=== PATIENT | female | born 1955 | race Native Hawaiian/Other Pacific Islander ===

== ENCOUNTER 2018-07-07 05:44 | Inpatient (IN) | payer OTHER ==
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
[2018-07-07 06:59] LABS: Basophils % (Auto) 0.5 % (0.0-1.8); Eosinophils # (Auto) 0.4 K/mm3 (0.0-0.4); Eosinophils % (Auto) 5.6 % (0.0-4.3); Hematocrit 42.7 % (30.3-42.9); Hemoglobin 14.3 gm/dl (10.1-14.3); Lymphocytes # (Auto) 2.5 K/mm3 (1.2-5.4); Lymphocytes % (Auto) 36.4 % (13.4-35.0); Mean Corpuscular HGB Conc 34 % (30-34); Mean Corpuscular Volume 85 fl (79-97); Monocytes # (Auto) 0.5 K/mm3 (0.0-0.8); Monocytes % (Auto) 7.2 % (0.0-7.3); Platelet Count 295 K/mm3 (140-440); Red Blood Count 5.05 M/mm3 (3.65-5.03); Red Cell Distribution Width 13.1 % (13.2-15.2)
[2018-07-07 07:13] LABS: BUN/Creatinine Ratio 26; Blood Urea Nitrogen 13 mg/dL (7-17); Calcium 9.1 mg/dL (8.4-10.2); Hemolysis Index 6
--- NOTE | 2018-07-07 07:38 | Emergency Department Report ---
ED Chest Pain HPI - General Chief Complaint: Dyspnea/Respdistress Stated Complaint: NORA Time Seen by Provider: 07/07/18 07:27 Source: patient, family Mode of arrival: Ambulatory Limitations: No Limitations - History of Present Illness Initial Comments: Patient is a 62-year-old female that presents to the emergency room with complaints of chest pain and shortness of breath. Patient also landed on exertion. Patient states her symptoms are gone for 2 days. Patient states her symptoms are worsening. Patient states she has a past medical history of d iabetes hypertension for which both are uncontrolled. Patient's last doctor visit one year ago. Patient also states she has a history of a PE that she received treatment for 2 years ago. Patient is not currently on any anticoagulation. Patient states the chest pain is a 8 out of 10 and is worse with exertion and better with rest. Patient states shortness of breath is better with rest and worse with exertion. Patient states the pain is radiating to her left upper extremity and to her back. MD Complaint: chest pain -: Sudden Onset: during rest Pain Location: substernal, left chest Pain Radiation: LUE, back Severity: severe Severity scale (0 -10): 8 Quality: aching Consistency: constant Improves With: rest Worsens With: exertion re: dyspnea. denies: nausea, vomting, diaphoresis, sense of impending doom Other Symptoms: denies: cough, fever, syncope, rash, acid taste in mouth, leg swelling, palpitations, burping Treatments Prior to Arrival: none Aspirin use within the Past 7 Days: (1) Yes - Related Data On Oral Contraceptives: No Home Medications Medication Instructions Recorded Confirmed Last Taken Aspirin [Aspirin BABY CHEW TAB] 81 mg PO QDAY 02/16/15 07/07/18 02/15/15 Losartan/Hydrochlorothiazide 1 each PO QDAY 07/07/18 07/07/18 Unknown [Hyzaar 100-12.5 TAB] Sitagliptin Phos/Metformin HCl 1 tab PO QDAY 07/07/18 07/07/18 Unknown [Janumet XR 100-1,000 mg] Allergies Allergy/AdvReac Type Severity Reaction Status Date / Time No Known Allergies Allergy Unverified 02/16/15 01:13 Heart Score - HEART Score History: Moderately suspicious EKG: Normal Age: 45-65 Risk factors: > 3 risk factors or hx of atherosclerotic disease Troponin: < normal limit HEART Score: 4 ED Review of Systems ROS: Stated complaint: NORA Other details as noted in HPI Constitutional: denies: chills, fever Eyes: denies: eye pain, eye discharge, vision change ENT: denies: ear pain, throat pain Respiratory: shortness of breath. denies: cough, wheezing Cardiovascular: chest pain. denies: palpitations Endocrine: no symptoms reported Gastrointestinal: denies: abdominal pain, nausea, diarrhea Genitourinary: denies: urgency, dysuria, discharge Musculoskeletal: denies: back pain, joint swelling, arthralgia Skin: denies: rash, lesions Neurological: denies: headache, weakness, paresthesias Psychiatric: denies: anxiety, depression Hematological/Lymphatic: denies: easy bleeding, easy bruising ED Past Medical Hx - Past Medical History Previous Medical History?: Yes Hx Hypertension: Yes Hx Diabetes: Yes Hx Pulmonary Embolism: Yes Hx Arthritis: Yes - Surgical History Past Surgical History?: Yes Additional Surgical History: hysterectomy 97 - Family History Family history: no significant - Social History Smoking Status: Former Smoker Substance Use Type: None - Medications Home Medications: Home Medications Medication Instructions Recorded Confirmed Last Taken Type Aspirin [Aspirin BABY CHEW TAB] 81 mg PO QDAY 02/16/15 07/07/18 02/15/15 History Losartan/Hydrochlorothiazide 1 each PO QDAY 07/07/18 07/07/18 Unknown History [Hyzaar 100-12.5 TAB] Sitagliptin Phos/Metformin HCl 1 tab PO QDAY 07/07/18 07/07/18 Unknown History [Janumet XR 100-1,000 mg] ED Physical Exam - General Limitations: No Limitations General appearance: alert, in no apparent distress - Head Head exam: Present: atraumatic, normocephalic - Eye Eye exam: Present: normal appearance - ENT ENT exam: Present: mucous membranes moist - Neck Neck exam: Present: normal inspection - Respiratory Respiratory exam: Present: normal lung sounds bilaterally. Absent: respiratory distress - Cardiovascular Cardiovascular Exam: Present: regular rate, normal rhythm. Absent: systolic murmur, diastolic murmur, rubs, gallop - GI/Abdominal GI/Abdominal exam: Present: soft, normal bowel sounds. Absent: distended, tenderness, guarding - Extremities Exam Extremities exam: Present: normal inspection - Back Exam Back exam: Present: normal inspection - Neurological Exam Neurological exam: Present: alert, oriented X3 - Psychiatric Psychiatric exam: Present: normal affect, normal mood - Skin Skin exam: Present: warm, dry, intact, normal color. Absent: rash ED Course Vital Signs 07/07/18 07/07/18 07/07/18 07:37 07:45 08:09 Pulse Rate 74 78 Respiratory 16 13 Rate Blood Pressure 176/72 O2 Sat by Pulse 100 97 96 Oximetry 07/07/18 07/07/18 07/07/18 08:15 08:31 08:45 Pulse Rate 73 68 70 Respiratory 11 L 17 14 Rate Blood Pressure O2 Sat by Pulse 95 95 93 Oximetry 07/07/18 07/07/18 07/07/18 09:00 09:15 09:30 Pulse Rate 75 73 73 Respiratory 15 16 12 Rate Blood Pressure 165/83 169/83 166/80 O2 Sat by Pulse 94 94 93 Oximetry 07/07/18 07/07/18 07/07/18 09:45 10:00 10:15 Pulse Rate 79 79 79 Respiratory 16 11 L 17 Rate Blood Pressure 163/77 163/78 174/84 O2 Sat by Pulse 96 93 97 Oximetry 07/07/18 07/07/18 07/07/18 10:30 10:45 11:00 Pulse Rate 78 82 77 Respiratory 12 19 16 Rate Blood Pressure 153/65 158/71 165/84 O2 Sat by Pulse 92 95 95 Oximetry 07/07/18 07/07/18 11:15 11:30 Pulse Rate 80 77 Respiratory 16 18 Rate Blood Pressure 153/77 155/68 O2 Sat by Pulse 92 92 Oximetry - Reevaluation(s) Reevaluation #1: Discussed all results with patient. Patient agrees to plan of care and admission. Patient will be admitted to the hospitalist service 07/07/18 09:39 - Consultations Consultation #1: Hospitalist consulted for admission. Hospitalist admit patient and assume care of patient. Bridge orders placed for hospitalist 07/07/18 09:39 JORGE score - Jorge Score Age > 65: (0) No Aspirin use within the Past 7 Days: (0) No 3 or more CAD Risk Factors: (1) Yes 2 or more Angina events in past 24 hrs: (1) Yes Known CAD with more than 50% Stenosis: (0) No Elevated Cardiac Markers: (0) No ST Deviation Greater than 0.5mm: (0) No JORGE Score: 2 ED Medical Decision Making - Lab Data Result diagrams: 07/07/18 06:45 07/07/18 06:45 - EKG Data -: EKG Interpreted by Me EKG shows normal: sinus rhythm, axis, intervals, QRS complexes, ST-T waves Rate: normal - Radiology Data Radiology results: report reviewed Negative chest x-ray. CT is negative for PE. - Medical Decision Making Patient is a 62-year-old female that presents emergency room with chest pain shortness of breath. Patient has a history of uncontrolled diabetes and uncontrolled hypertension.. Patient will be admitted to the hospitalist service. Patient's CT of the chest is negative. Patient's chest x-ray is negative. Patient's initial cardiac workup was negative. Patient's EKG is negative. - Differential Diagnosis acs. cp./ sob. pe Critical Care Time: Yes Critical care attestation.: If time is entered above; I have spent that time in minutes in the direct care of this critically ill patient, excluding procedure time. Critical Care Time: 35 minutes ED Disposition Clinical Impression: SOB (shortness of breath) Hypertension Qualifiers: Hypertension type: essential hypertension Qualified Code(s): I10 - Essential (primary) hypertension Chest pain Qualifiers: Chest pain type: unspecified Qualified Code(s): R07.9 - Chest pain, unspecified Disposition: DC-09 OP ADMIT IP TO THIS HOSP Is pt being admited?: Yes Does the pt Need Aspirin: No Condition: Critical Time of Disposition: 09:41
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
--- NOTE | 2018-07-07 13:38 | History and Physical Report ---
History of Present Illness Date of admission: 07/07/18 09:42 Chief complaint: Chest pain History of present illness: She is also complaining of dyspnea on exertion., Worsening symptoms. Denies any exacerbating factors except for exertion. She claims compliance with her medications. She is also complaining of midsternal dull chest pain, which is about 4 out of 10. States that pain is radiating to left upper extremity and to back Past medical history Hypertension, diabetes, history of PE Past surgical history; hysterectomy Family history significant for diabetes Social history former smoker, denies presence Medications and Allergies Allergies Allergy/AdvReac Type Severity Reaction Status Date / Time No Known Allergies Allergy Unverified 02/16/15 01:13 Home Medications Medication Instructions Recorded Confirmed Last Taken Type Aspirin [Aspirin BABY CHEW TAB] 81 mg PO QDAY 02/16/15 07/07/18 02/15/15 History Losartan/Hydrochlorothiazide 1 each PO QDAY 07/07/18 07/07/18 Unknown History [Hyzaar 100-12.5 TAB] Sitagliptin Phos/Metformin HCl 1 tab PO QDAY 07/07/18 07/07/18 Unknown History [Janumet XR 100-1,000 mg] amLODIPine [Norvasc] 10 mg PO DAILY #30 tab 07/08/18 Unknown Rx Active Meds: Active Medications Aspirin (Baby Aspirin) [address] [facility] Miscellaneous Medication (Losartan/Hydrochlorothiazide [Hyzaar 100-12.5 Tab]) 1 each PO QDAY [facility] Miscellaneous Medication (Sitagliptin Phos/Metformin Hcl [Janumet Xr 100-1,000 Mg]) [address] [facility] Review of Systems All systems: negative Constitutional: no weight loss Ears, nose, mouth and throat: no ear pain Breasts: no deferred Cardiovascular: chest pain, no orthopnea Respiratory: no cough Gastrointestinal: no abdominal pain Genitourinary Female: no pelvic pain Rectal: no pain Musculoskeletal: no neck stiffness Integumentary: no deferred Neurological: no head injury Psychiatric: no anxiety Endocrine: no cold intolerance Hematologic/Lymphatic: no easy bruising Allergic/Immunologic: no urticaria Exam - Constitutional Vitals: Temp Pulse Resp BP Pulse Ox 77 18 155/68 92 07/07/18 11:30 07/07/18 11:30 07/07/18 11:30 07/07/18 11:30 General appearance: Present: no acute distress, well-nourished - EENT Eyes: Present: PERRL ENT: hearing intact, clear oral mucosa - Neck Neck: Present: supple, normal ROM - Respiratory Respiratory effort: normal Respiratory: bilateral: CTA - Cardiovascular Heart Sounds: Present: S1 & S2. Absent: rub, click - Extremities Extremities: pulses symmetrical, No edema Peripheral Pulses: within normal limits - Abdominal General gastrointestinal: Present: soft, non-tender, non-distended, normal bowel sounds Female genitourinary: Present: normal - Integumentary Integumentary: Present: clear, warm, dry - Musculoskeletal Musculoskeletal: gait normal, strength equal bilaterally - Psychiatric Psychiatric: appropriate mood/affect, intact judgment & insight - Neurologic Neurologic: CNII-XII intact, moves all extremities Results - Labs CBC & Chem 7: 07/07/18 06:45 07/07/18 06:45 Labs: Laboratory Last Values WBC 6.8 K/mm3 (4.5-11.0) 07/07/18 06:45 RBC 5.05 M/mm3 (3.65-5.03) H 07/07/18 06:45 Hgb 14.3 gm/dl (10.1-14.3) 07/07/18 06:45 Hct 42.7 % (30.3-42.9) 07/07/18 06:45 MCV 85 fl (79-97) 07/07/18 06:45 MCH 28 pg (28-32) 07/07/18 06:45 MCHC 34 % (30-34) 07/07/18 06:45 RDW 13.1 % (13.2-15.2) L 07/07/18 06:45 Plt Count 295 K/mm3 (140-440) 07/07/18 06:45 Lymph % (Auto) 36.4 % (13.4-35.0) H 07/07/18 06:45 Sandoval % (Auto) 7.2 % (0.0-7.3) 07/07/18 06:45 Eos % (Auto) 5.6 % (0.0-4.3) H 07/07/18 06:45 Baso % (Auto) 0.5 % (0.0-1.8) 07/07/18 06:45 Lymph # 2.5 K/mm3 (1.2-5.4) 07/07/18 06:45 Sandoval # 0.5 K/mm3 (0.0-0.8) 07/07/18 06:45 Eos # 0.4 K/mm3 (0.0-0.4) 07/07/18 06:45 Baso # 0.0 K/mm3 (0.0-0.1) 07/07/18 06:45 Seg Neutrophils % 50.3 % (40.0-70.0) 07/07/18 06:45 Seg Neutrophils # 3.4 K/mm3 (1.8-7.7) 07/07/18 06:45 Sodium 135 mmol/L (137-145) L 07/07/18 06:45 Potassium 3.7 mmol/L (3.6-5.0) 07/07/18 06:45 Chloride 97.7 mmol/L (98-107) L 07/07/18 06:45 Carbon Dioxide 25 mmol/L (22-30) 07/07/18 06:45 Anion Gap 16 mmol/L 07/07/18 06:45 BUN 13 mg/dL (7-17) 07/07/18 06:45 Creatinine 0.5 mg/dL (0.7-1.2) L 07/07/18 06:45 Estimated GFR > 60 ml/min 07/07/18 06:45 BUN/Creatinine Ratio 26 % 07/07/18 06:45 Glucose 238 mg/dL (65-100) H 07/07/18 06:45 Calcium 9.1 mg/dL (8.4-10.2) 07/07/18 06:45 Troponin T < 0.010 ng/mL (0.00-0.029) 07/07/18 07:50 Assessment and Plan Assessment and plan: 62F with pmh of htn, DM who pw chest pain CTA chest neg for PNA or PE Diagnosis CP htn DM Plan Serial trop neg, for stress and echo in am cont meds for htn and DM dvt ppx; early ambulation
[2018-07-07] MEDS ORDERED: SODIUM CHLORIDE FLUSH SYRINGE 10 ML IV PRN ×2 (13:39)
[2018-07-07] MEDS ORDERED: ZOFRAN IV PRN (13:39)
[2018-07-07] MEDS ORDERED: TYLENOL PO PRN (13:39)
[2018-07-07] MEDS ORDERED: D50W (25GM) Syringe IV PRN (13:39)
[2018-07-07] MEDS: MORPHINE IV PRN (16:40)
[2018-07-07] MEDS: HumaLOG SUB-Q SCH (17:56)
[2018-07-07] MEDS: SODIUM CHLORIDE FLUSH SYRINGE 10 ML IV SCH (22:05)
[2018-07-08] MEDS: HumaLOG SUB-Q SCH ×3 (00:25→13:30)
[2018-07-08] MEDS: MORPHINE IV PRN ×2 (00:26→11:45)
[2018-07-08] MEDS ORDERED: GLUCOPHAGE XR PO SCH (08:00)
[2018-07-08] MEDS ORDERED: LEXISCAN IV ONE ×2 (09:25)
[2018-07-08] MEDS ORDERED: HCTZ PO SCH (10:00)
[2018-07-08] MEDS ORDERED: NON-FORMULARY (Losartan/Hydrochlorothiazide [Hyzaar 100-12.5 Tab] 1 EACH) PO SCH (10:00)
[2018-07-08] MEDS ORDERED: BABY ASPIRIN PO SCH (10:00)
[2018-07-08] MEDS ORDERED: NON-FORMULARY (Sitagliptin Phos/Metformin Hcl [Janumet Xr 100-1,000 Mg] 1 TAB) PO SCH (10:00)
[2018-07-08] MEDS ORDERED: TRADJENTA PO SCH (10:00)
[2018-07-08] MEDS ORDERED: COZAAR PO SCH (10:00)
[2018-07-08] MEDS: SODIUM CHLORIDE FLUSH SYRINGE 10 ML IV SCH (11:40)
[2018-07-08] MEDS ORDERED: AFLURIA QUAD 2018-2019 SYRINGE IM ONE (12:00)
[2018-07-08] MEDS ORDERED: PNEUMOVAX 23 IM ONE (12:00)
[2018-07-08 12:22] VITALS: BP 157/63
--- NOTE | 2018-07-08 14:12 | Discharge Summary ---
Providers - Providers Date of Admission: 07/07/18 09:42 Attending physician: MURALI COATS MD [facility]: [facility] Hospital course: 62F w pmh of htn who pw CP -acs was ruled out, she went on to have a stress test which was negative -her bp was elevated, therefore BP meds were optimized Diagnosis Htn urgency CP due to htn urgency Type 2 Dm Disposition: DC-01 TO HOME OR SELFCARE Time spent for discharge: 33 mins Core Measure Documentation - Palliative Care Palliative Care/ Comfort Measures: Not Applicable - Core Measures Any of the following diagnoses?: none Exam - Constitutional Vitals: Temp Pulse Resp BP Pulse Ox 98.0 F 76 20 157/63 93 07/08/18 12:08 07/08/18 12:08 07/08/18 12:15 07/08/18 12:08 07/08/18 12:08 General appearance: Present: no acute distress, well-nourished - EENT Eyes: Present: PERRL ENT: hearing intact, clear oral mucosa - Neck Neck: Present: supple, normal ROM - Respiratory Respiratory effort: normal Respiratory: bilateral: CTA - Cardiovascular Heart Sounds: Present: S1 & S2. Absent: rub, click - Extremities Extremities: pulses symmetrical, No edema Peripheral Pulses: within normal limits - Abdominal General gastrointestinal: Present: soft, non-tender, non-distended, normal bowel sounds Female genitourinary: Present: normal - Integumentary Integumentary: Present: clear, warm, dry - Musculoskeletal Musculoskeletal: gait normal, strength equal bilaterally - Psychiatric Psychiatric: appropriate mood/affect, intact judgment & insight - Neurologic Neurologic: CNII-XII intact, moves all extremities Plan [facility] [Primary Care Provider] - 7 Days Prescriptions: amLODIPine [Norvasc] 10 mg PO DAILY #30 tab
--- NOTE | 2018-07-08 14:20 | Treadmill Report ---
LEXISCAN STRESS TEST REPORT REASON FOR STUDY: Chest pain. STRESS TEST PROTOCOL: The patient received 0.4 mg of Lexiscan intravenously over 10 seconds. Tc-99m tetrofosmin was subsequently injected. Baseline ECG, normal sinus rhythm. Lexiscan ECG, she developed nonspecific inferolateral T-wave abnormalities. No chest pain. No arrhythmias. IMPRESSION: Nondiagnostic due to nonspecific ECG abnormalities. Nuclear imaging report to follow. JOB# [id number] AGO/NTS
--- NOTE | 2018-07-08 19:51 | Treadmill Report ---
THALLIUM REPORT REASON FOR STUDY: Chest pain. IMAGING PROTOCOL: The patient received Tc-99m Tetrofosmin for stress and rest imaging. IMAGING PROTOCOL: The patient received Technetium-99 Tetrofosmin for stress and rest imaging. Imaging for all procedures was completed 30-90 minutes following the initial injection of Technetium 99m Tetrofosmin. SPECT imaging in the 180 degree arc was performed in the right anterior oblique projection. Computerized reconstruction of the images was performed for analysis. NUCLEAR IMAGING RESULTS: Normal left ventricular cavity size with no change from stress to rest. Distribution of radionuclide within the left ventricle revealed a small area of photo-induction involving the inferior wall. The degree of photo-induction is mild. Rest imaging showed complete improvement in this defect. Gated SPECT imaging revealed normal global LV systolic function with no significant wall motion abnormalities. The calculated left ventricular ejection fraction is 62%. IMPRESSION: Small reversible inferior defect. Normal global LV systolic function with no significant wall motion abnormalities. EF is 62%. These findings suggest mild reversible ischemia in the right coronary artery territory. No evidence of prior infarction. [facility]# [id number] RAHEEM/RADHA BRISCOE
== END 2018-07-08 16:45 | disposition home or self-care (01) | DRG 305 ==
LOC: ED 05:44 → 4A 09:42 → 3A 14:52
PROVIDERS: ADMIT Internal Medicine; ATTEND Internal Medicine
PROC: 3E0234Z Introduction of Serum, Toxoid and Vaccine into Muscle, Percutaneous Approach (ICD-10-PCS; principal; 2018-07-08)
DX: I16.0 Hypertensive urgency (principal); E11.9 Type 2 diabetes mellitus without complications; I10 Essential (primary) hypertension; M19.90 Unspecified osteoarthritis, unspecified site; Z79.82 Long term (current) use of aspirin; Z79.899 Other long term (current) drug therapy; Z86.711 Personal history of pulmonary embolism; Z90.710 Acquired absence of both cervix and uterus; Z23 Encounter for immunization
CPT/HCPCS: 36415; 71046; 71275; 78452; 80048; 82962; 83036; 84484; 85025; 90686; 90732; 93005; 93010; 93017; 93306; G0378; A9502; J1815; J2270; J2785; Q9967

== ENCOUNTER 2018-10-14 12:45 | Emergency (ER) | payer SELFPAY ==
--- NOTE | 2018-10-14 12:53 | Event Note ---
ED Screening Note ED Screening Note: LLQ PAIN BM YESTERDAY HAS HAD OFF AND ON FOR 2 W SAW MD BUT SHE WAS NOT HAVING PAIN SO NOTHING DONE NO HX COLONOSCOPY PMH DM HTN HPLD VSS NO FEVER This initial assessment/diagnostic orders/clinical plan/treatment(s) is/are subject to change based on patients health status, clinical progression and re-assessment by fellow clinical providers in the ED. Further treatment and workup at subsequent clinical providers discretion. Patient/guardian urged not to elope from the ED as their condition may be serious if not clinically assessed and managed. Initial orders include:
[2018-10-14 13:10] LABS: Bilirubin,Urine NEG (Negative); Blood,Urine NEG (Negative); Color,Urine Yellow (Yellow); Protein,Urine <15 mg/dL mg/dL (Negative); Urobilinogen,Urine < 2.0 mg/dL (<2.0)
[2018-10-14 13:12] LABS: Hematocrit 37.1 % (30.3-42.9); Hemoglobin 12.6 gm/dl (10.1-14.3); Mean Corpuscular HGB Conc 34 % (30-34); Mean Corpuscular Volume 85 fl (79-97); Platelet Count 392 K/mm3 (140-440); Red Blood Count 4.35 M/mm3 (3.65-5.03); Red Cell Distribution Width 13.5 % (13.2-15.2)
[2018-10-14 13:35] LABS: Alanine Aminotransferase 14 units/L (7-56); Albumin 3.9 g/dL (3.9-5); BUN/Creatinine Ratio 20; Blood Urea Nitrogen 10 mg/dL (7-17); Calcium 8.9 mg/dL (8.4-10.2); Hemolysis Index 1
[2018-10-14] MEDS ORDERED: TORADOL IV ONE (13:52)
[2018-10-14] MEDS ORDERED: NACL 0.9% 1000 ML 1,000 ML IV ONE (13:52)
--- NOTE | 2018-10-14 14:10 | Emergency Department Report ---
ED Abdominal Pain HPI - General Chief Complaint: Abdominal Pain Stated Complaint: LOW ABDOMINAL PAIN Time Seen by Provider: 10/14/18 12:53 Source: patient, family Mode of arrival: Ambulatory Limitations: Language Barrier - History of Present Illness Initial Comments: Pt is a 63 yo female who presents to the ED with c/o RLQ abdominal pain that began a week ago but worsened over the last three days. She states she had a subjective fever last night. She denies any N/V/D or urinary sx. she states she last had a BM yesterday which she says was normal. PSHx of appendectomy, hysterectomy. PMHx of DM, HTN, depression. namibian translation by son - Related Data Home Medications Medication Instructions Recorded Confirmed Last Taken Aspirin [Aspirin BABY CHEW TAB] 81 mg PO QDAY 02/16/15 07/07/18 02/15/15 Losartan/Hydrochlorothiazide 1 each PO QDAY 07/07/18 07/07/18 Unknown [Hyzaar 100-12.5 TAB] Sitagliptin Phos/Metformin HCl 1 tab PO QDAY 07/07/18 07/07/18 Unknown [Janumet XR 100-1,000 mg] Previous Rx's Medication Instructions Recorded Last Taken Type amLODIPine [Norvasc] 10 mg PO DAILY #30 tab 07/08/18 Unknown Rx Acetaminophen/Codeine [Tylenol 1 tab PO Q8H PRN #12 tab 09/03/18 Unknown Rx /Codeine # 3 tab] Dicyclomine [Bentyl] 10 mg PO QID PRN #20 capsule 10/14/18 Unknown Rx Docusate Sodium [Colace] 100 mg PO BID PRN #20 capsule 10/14/18 Unknown Rx Ondansetron [Zofran Odt] 4 mg PO Q8HR PRN #10 tab.rapdis 10/14/18 Unknown Rx Polyethylene Glycol 3350 [Miralax] 7 gm PO DAILY PRN #1 powder 10/14/18 Unknown Rx Allergies Allergy/AdvReac Type Severity Reaction Status Date / Time No Known Allergies Allergy Verified 10/14/18 12:46 ED Review of Systems ROS: Stated complaint: LOW ABDOMINAL PAIN Other details as noted in HPI Comment: All other systems reviewed and negative ED Past Medical Hx - Past Medical History Hx Hypertension: Yes Hx Diabetes: Yes Hx Pulmonary Embolism: Yes Hx Arthritis: Yes Hx Asthma: No - Surgical History Additional Surgical History: hysterectomy 97 - Social History Smoking Status: Never Smoker Substance Use Type: None - Medications Home Medications: Home Medications Medication Instructions Recorded Confirmed Last Taken Type Aspirin [Aspirin BABY CHEW TAB] 81 mg PO QDAY 02/16/15 07/07/18 02/15/15 History Losartan/Hydrochlorothiazide 1 each PO QDAY 07/07/18 07/07/18 Unknown History [Hyzaar 100-12.5 TAB] Sitagliptin Phos/Metformin HCl 1 tab PO QDAY 07/07/18 07/07/18 Unknown History [Janumet XR 100-1,000 mg] amLODIPine [Norvasc] 10 mg PO DAILY #30 tab 07/08/18 Unknown Rx Acetaminophen/Codeine [Tylenol 1 tab PO Q8H PRN #12 tab 09/03/18 Unknown Rx /Codeine # 3 tab] Dicyclomine [Bentyl] 10 mg PO QID PRN #20 capsule 10/14/18 Unknown Rx Docusate Sodium [Colace] 100 mg PO BID PRN #20 capsule 10/14/18 Unknown Rx Ondansetron [Zofran Odt] 4 mg PO Q8HR PRN #10 tab.rapdis 10/14/18 Unknown Rx Polyethylene Glycol 3350 [Miralax] 7 gm PO DAILY PRN #1 powder 10/14/18 Unknown Rx ED Physical Exam - General Limitations: Language Barrier General appearance: alert, in no apparent distress - Head Head exam: Present: atraumatic, normocephalic - Eye Eye exam: Present: normal appearance, PERRL - ENT ENT exam: Present: mucous membranes moist - Respiratory Respiratory exam: Present: normal lung sounds bilaterally. Absent: respiratory distress, wheezes, rales, rhonchi, stridor, chest wall tenderness, accessory muscle use, decreased breath sounds, prolonged expiratory - Cardiovascular Cardiovascular Exam: Present: regular rate, normal rhythm, normal heart sounds. Absent: systolic murmur, diastolic murmur, rubs, gallop - GI/Abdominal GI/Abdominal exam: Present: soft, tenderness (RLQ, periumbilical ), normal bowel sounds. Absent: distended, guarding, rebound, rigid - Back Exam Back exam: Absent: CVA tenderness (R), CVA tenderness (L) - Neurological Exam Neurological exam: Present: alert, oriented X3 - Psychiatric Psychiatric exam: Present: normal affect, normal mood - Skin Skin exam: Present: warm, dry, intact ED Course Vital Signs 10/14/18 10/14/18 10/14/18 12:52 14:08 16:30 Temperature 97.7 F 99.1 F Pulse Rate 86 71 Respiratory 18 18 14 Rate Blood Pressure 167/59 Blood Pressure 147/61 [Left] O2 Sat by Pulse 96 100 Oximetry ED Medical Decision Making - Lab Data Result diagrams: 10/14/18 13:00 10/14/18 13:00 Lab Results 10/14/18 10/14/18 10/14/18 Range/Units 12:59 13:00 13:00 WBC 10.2 (4.5-11.0) K/mm3 RBC 4.35 (3.65-5.03) M/mm3 Hgb 12.6 (10.1-14.3) gm/dl Hct 37.1 (30.3-42.9) % MCV 85 (79-97) fl MCH 29 (28-32) pg MCHC 34 (30-34) % RDW 13.5 (13.2-15.2) % Plt Count 392 (140-440) K/mm3 Sodium 134 L (137-145) mmol/L Potassium 4.1 (3.6-5.0) mmol/L Chloride 96.2 L (98-107) mmol/L Carbon Dioxide 27 (22-30) mmol/L Anion Gap 15 mmol/L BUN 10 (7-17) mg/dL Creatinine 0.5 L (0.7-1.2) mg/dL Estimated GFR > 60 ml/min BUN/Creatinine Ratio 20 % Glucose 237 H (65-100) mg/dL Calcium 8.9 (8.4-10.2) mg/dL Total Bilirubin 0.40 (0.1-1.2) mg/dL AST 14 (5-40) units/L ALT 14 (7-56) units/L Alkaline Phosphatase 101 (35-129) units/L Total Protein 7.3 (6.3-8.2) g/dL Albumin 3.9 (3.9-5) g/dL Albumin/Globulin Ratio 1.1 % Urine Color Yellow (Yellow) Urine Turbidity Clear (Clear) Urine pH 5.0 (5.0-7.0) Ur Specific Leonard 1.014 (1.003-1.030) Urine Protein <15 mg/dl (Negative) mg/dL Urine Glucose (UA) 50 (Negative) mg/dL Urine Ketones Neg (Negative) mg/dL Urine Blood Neg (Negative) Urine Nitrite Neg (Negative) Urine Bilirubin Neg (Negative) Urine Urobilinogen < 2.0 (<2.0) mg/dL Ur Leukocyte Esterase Neg (Negative) Urine WBC (Auto) 1.0 (0.0-6.0) /HPF Urine RBC (Auto) 1.0 (0.0-6.0) /HPF U Epithel Cells (Auto) < 1.0 (0-13.0) /HPF - Radiology Data Radiology results: report reviewed PROCEDURE: CT ABDOMEN PELVIS W CON TECHNIQUE: Computerized axial tomography of the abdomen and pelvis was performed after the administration of IV iodinated nonionic contrast. CT DOSE LENGTH PRODUCT: 3332.9 mGycm HISTORY: RLQ and periumbilical abd pain COMPARISONS: None . FINDINGS: Contrast-enhanced CT of the abdomen and pelvis was performed following intravenous administration of iodinated contrast. The heart is normal in size. The lung bases appear clear. ABDOMEN: No suspect focal hepatic lesion is seen. The spleen, adrenal glands, pancreas, gallbladder are unremarkable. There is no renal or ureteral calculus. There is no small or large bowel obstruction. There is aortic atherosclerotic change without aneurysmal dilation of the aorta. There is no small or large bowel obstruction. Pelvis: There is a normal appendix. There is no evidence of diverticulitis. There has been a hysterectomy. The urinary bladder is within normal limits. There is a small fat-containing umbilical hernia. There are vacuum degenerative changes at all levels of the lower thoracic spine and all levels of the lumbar spine. IMPRESSION: ABDOMEN: No renal or ureteral calculus Pelvis: Normal appendix This document is electronically signed by Song Valderrama MD., October 14 2018 04:31:24 PM ET Transcribed By: KATI Dictated By: SONG VALDERRAMA MD Electronically Authenticated By: SONG VALDERRAMA MD Signed Date/Time: 10/14/18 1633 - Medical Decision Making Pt is a 63 yo female who presents to the ED with c/o RLQ abdominal pain that began a week ago but worsened over the last three days. She states she had a subjective fever last night. She denies any N/V/D or urinary sx. she states she last had a BM yesterday which she says was normal. PSHx of appendectomy, hysterectomy. PMHx of DM, HTN, depression. namibian translation by son on exam RLQ and periumbilical discomfort, no guarding, no rebound, normal bowel sounds. UA is normal. labs elevated glucose in the 200s otherwise normal. pt given toradol, zofran, and IVF. CT abd pelvis shows no acute process, constipation present. pt given bentyl, zofran, miralax, and colace. advised to please take medication as prescribed. drink plenty of water and eat a high fiber diet. follow up with a primary care doctor in the next 2-3 days. return to the emergency room for any new or worsening symptoms. - Differential Diagnosis colitis, gastroenteritis, SBO, constipation, appendicitis Critical care attestation.: If time is entered above; I have spent that time in minutes in the direct care of this critically ill patient, excluding procedure time. ED Disposition Clinical Impression: Abdominal pain Qualifiers: Abdominal location: right lower quadrant Qualified Code(s): R10.31 - Right lower quadrant pain Constipation Qualifiers: Constipation type: unspecified constipation type Qualified Code(s): K59.00 - Constipation, unspecified Disposition: - TO HOME OR SELFCARE Is pt being admited?: No Does the pt Need Aspirin: No Condition: Stable Instructions: Constipation (ED), High Fiber Diet (ED), Abdominal Pain (ED) Additional Instructions: Please take medication as prescribed. drink plenty of water and eat a high fiber diet. follow up with a primary care doctor in the next 2-3 days. return to the emergency room for any new or worsening symptoms. Prescriptions: Dicyclomine [Bentyl] 10 mg PO QID PRN #20 capsule PRN Reason: Spasms Docusate Sodium [Colace] 100 mg PO BID PRN #20 capsule PRN Reason: Constipation Polyethylene Glycol 3350 [Miralax] 7 gm PO DAILY PRN #1 powder PRN Reason: Constipation Ondansetron [Zofran Odt] 4 mg PO Q8HR PRN #10 tab.rapdis PRN Reason: Nausea Referrals: YANIQUE OCHOA MD [Primary Care Provider] - 2-3 Days Time of Disposition: 16:36 Print Language: LUXEMBOURGISH
[2018-10-14 16:30] VITALS: BP 147/61
--- NOTE | 2018-10-14 16:33 | Cat Scan Report ---
PROCEDURE: CT ABDOMEN PELVIS W CON TECHNIQUE: Computerized axial tomography of the abdomen and pelvis was performed after the administr ation of IV iodinated nonionic contrast. CT DOSE LENGTH PRODUCT: 3332.9 mGycm HISTORY: RLQ and periumbilical abd pain COMPARISONS: None . FINDINGS: Contrast-enhanced CT of the abdomen and pelvis was performed following intravenous administ ration of iodinated contrast. The heart is normal in size. The lung bases appear clear. ABDOMEN: No suspect focal hepatic lesion is seen. The spleen, adrenal glands, pancreas, gallbladder are unrema rkable. There is no renal or ureteral calculus. There is no small or large bowel obstruction. There i s aortic atherosclerotic change without aneurysmal dilation of the aorta. There is no small or large bowel obstruction. Pelvis: There is a normal appendix. There is no evidence of diverticulitis. There has been a hysterectomy. Th e urinary bladder is within normal limits. There is a small fat-containing umbilical hernia. There are vacuum degenerative changes at all levels of the lower thoracic spine and all levels of the lumbar spine. IMPRESSION: ABDOMEN: No renal or ureteral calculus Pelvis: Normal appendix This document is electronically signed by Sergey Valderrama MD., October 14 2018 04:31:24 PM ET
== END 2018-10-14 16:54 | disposition home or self-care (01) ==
LOC: ED 12:45
DX: R10.31 Right lower quadrant pain (principal); K59.00 Constipation, unspecified; I10 Essential (primary) hypertension; E11.9 Type 2 diabetes mellitus without complications; M19.90 Unspecified osteoarthritis, unspecified site; Z90.710 Acquired absence of both cervix and uterus; Z79.899 Other long term (current) drug therapy; Z86.711 Personal history of pulmonary embolism; Z79.01 Long term (current) use of anticoagulants
CPT/HCPCS: 36415; 74177; 80053; 81001; 85027; 96374; 99284; J1885; J7030; Q9967

== ENCOUNTER 2018-12-29 20:56 | Observation (INO) | payer SELFPAY ==
--- NOTE | 2018-12-29 22:09 | Emergency Department Report ---
Blank Doc - Documentation Documentation: This is a 63-year-old female that presents with chest pain, back pain and n/v. This initial assessment/diagnostic orders/clinical plan/treatment(s) is/are subject to change based on patient's health status, clinical progression and re- assessment by fellow clinical providers in the ED. Further treatment and workup at subsequent clinical providers discretion. Patient/guardians urged not to elope from the ED as their condition may be serious if not clinically assessed and managed. Initial orders include: 1- Patient sent to MAIN ED for further evaluation and treatment 2- labs 3- EKG 4- CXR
[2018-12-29 22:35] LABS: Basophils % (Auto) 0.3 % (0.0-1.8); Eosinophils # (Auto) 0.2 K/mm3 (0.0-0.4); Eosinophils % (Auto) 2.6 % (0.0-4.3); Hematocrit 32.9 % (30.3-42.9); Hemoglobin 11.3 gm/dl (10.1-14.3); Lymphocytes # (Auto) 2.2 K/mm3 (1.2-5.4); Lymphocytes % (Auto) 27.2 % (13.4-35.0); Mean Corpuscular HGB Conc 35 % (30-34); Mean Corpuscular Volume 84 fl (79-97); Monocytes # (Auto) 0.8 K/mm3 (0.0-0.8); Monocytes % (Auto) 9.9 % (0.0-7.3); Platelet Count 341 K/mm3 (140-440); Red Blood Count 3.94 M/mm3 (3.65-5.03); Red Cell Distribution Width 13.8 % (13.2-15.2)
[2018-12-29 22:45] LABS: INR 0.98 (0.87-1.13)
[2018-12-29 22:46] LABS: Partial Thromboplastin Time 28.5 Sec. (24.2-36.6)
[2018-12-29 23:00] LABS: Alanine Aminotransferase 15 units/L (7-56); Albumin 3.9 g/dL (3.9-5); BUN/Creatinine Ratio 18; Blood Urea Nitrogen 25 mg/dL (7-17); Calcium 9.5 mg/dL (8.4-10.2); Hemolysis Index 1
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
[2018-12-29] MEDS ORDERED: ZOFRAN IV ONE (23:23)
[2018-12-29] MEDS ORDERED: SUBLIMAZE IV ONE (23:23)
[2018-12-29] MEDS ORDERED: ASPIRIN PO ONE (23:23)
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
[2018-12-30] MEDS ORDERED: APRESOLINE IV PRN ×2 (00:07→00:32)
[2018-12-30] MEDS ORDERED: NITROSTAT SL PRN (00:32)
[2018-12-30] MEDS ORDERED: TYLENOL PO PRN (00:32)
[2018-12-30] MEDS ORDERED: SODIUM CHLORIDE FLUSH SYRINGE 10 ML IV PRN ×2 (00:32)
[2018-12-30] MEDS ORDERED: AMBIEN PO PRN (00:32)
[2018-12-30] MEDS ORDERED: ZOFRAN IV PRN (00:32)
--- NOTE | 2018-12-30 00:48 | History and Physical Report ---
History of Present Illness Date of examination: 12/29/18 Date of admission: 12/29/18 23:51 Chief complaint: Chest pain, abdominal pain, nausea and vomiting for x3days History of present illness: Pt is a 63-year-old female (Persian speaking) with PMHx of HTN, DM type 2 (on oral hypoglycemia) peripheral neuropathy, GERD and chonic constipation who presents to the ER with c/o chest and back pain x 3days. Patient states that the chest pain begins 3 days ago, located in the left substernal area radiating to her back, she states that she is a sharp pain associated with SOB, nausea/vomiting and diaphoresis. Pt states that she had similar pain before, but this time it's worse. Patient also reports a h/o chronic constipation, she c/o lower quadrant abdominal pain associated with n/v, she states that she has been vomiting for at least 2 days. Pt states that she comes to the ER because her pain became unbearable. She explain that she went to [place] where she had a colonoscopy, she believe that she was told that she had a "lump in her stomach" which is causing her constipation, she had called her son over the phone (who speak Greek) who explain her evaluation in [place] in more details. Pt had an EKG in the ER that was SR with a rate of, CE is negative, pt is admitted for more evaluation an treatment. Past History Past Medical History: diabetes, hypertension, hyperlipidemia Past Surgical History: No surgical history Social history: no significant social history Family history: no significant family history Medications and Allergies Allergies Allergy/AdvReac Type Severity Reaction Status Date / Time No Known Allergies Allergy Verified 10/14/18 12:46 Home Medications Medication Instructions Recorded Confirmed Last Taken Type Aspirin [Aspirin BABY CHEW TAB] 81 mg PO QDAY 02/16/15 07/07/18 02/15/15 History Losartan/Hydrochlorothiazide 1 each PO QDAY 07/07/18 07/07/18 Unknown History [Hyzaar 100-12.5 TAB] Sitagliptin Phos/Metformin HCl 1 tab PO QDAY 07/07/18 07/07/18 Unknown History [Janumet XR 100-1,000 mg] amLODIPine [Norvasc] 10 mg PO DAILY #30 tab 07/08/18 Unknown Rx Acetaminophen/Codeine [Tylenol 1 tab PO Q8H PRN #12 tab 09/03/18 Unknown Rx /Codeine # 3 tab] Dicyclomine [Bentyl] 10 mg PO QID PRN #20 capsule 10/14/18 Unknown Rx Docusate Sodium [Colace] 100 mg PO BID PRN #20 capsule 10/14/18 Unknown Rx Ondansetron [Zofran Odt] 4 mg PO Q8HR PRN #10 tab.rapdis 10/14/18 Unknown Rx Polyethylene Glycol 3350 [Miralax] 7 gm PO DAILY PRN #1 powder 10/14/18 Unknown Rx Active Meds: Active Medications Acetaminophen (Tylenol) 650 mg PO Q4H PRN PRN Reason: Pain MILD(1-3)/Fever >100.5/CAICEDO Aspirin (Ecotrin) 325 mg PO QDAY [facility] Atorvastatin Calcium (Lipitor) 20 mg PO QHS [facility] Enoxaparin Sodium (Lovenox) 30 mg SUB-Q QDAY [facility] Famotidine (Pepcid) 20 mg IV BID [facility] Hydralazine HCl (Apresoline) 5 mg IV Q6H PRN PRN Reason: Hypertension Hydralazine HCl (Apresoline) 10 mg IV Q6HR PRN PRN Reason: FOR SBP > target Lisinopril (Zestril) 5 mg PO QDAY [facility] Morphine Sulfate (Morphine) 2 mg IV Q4H PRN PRN Reason: Pain, Moderate (4-6) Nitroglycerin (Nitrostat) 0.4 mg SL Q5M PRN PRN Reason: Chest Pain Ondansetron HCl (Zofran) 4 mg IV Q8H PRN PRN Reason: Nausea And Vomiting Pantoprazole Sodium (Protonix) 40 mg PO QDAY [facility] Sodium Chloride (Sodium Chloride Flush Syringe 10 Ml) 10 ml IV BID [facility] Sodium Chloride (Sodium Chloride Flush Syringe 10 Ml) 10 ml IV PRN PRN PRN Reason: LINE FLUSH Sodium Chloride (Sodium Chloride Flush Syringe 10 Ml) 10 ml IV PRN PRN PRN Reason: LINE FLUSH Zolpidem Tartrate (Ambien) 5 mg PO QHS PRN PRN Reason: Sleep Review of Systems Cardiovascular: chest pain Respiratory: shortness of breath Gastrointestinal: abdominal pain, nausea, vomiting, constipation Exam - Constitutional Vitals: Temp Pulse Resp BP Pulse Ox 98.6 F 76 14 162/61 94 12/29/18 21:18 12/30/18 00:24 12/30/18 00:24 12/30/18 00:24 12/30/18 00:24 General appearance: Present: mild distress - EENT Eyes: Present: PERRL, EOM intact ENT: hearing intact - Neck Neck: Present: supple, normal ROM - Respiratory Respiratory effort: normal Respiratory: bilateral: CTA - Cardiovascular Rhythm: regular Heart Sounds: Present: S1 & S2 - Extremities Extremities: no ischemia Peripheral Pulses: within normal limits - Abdominal General gastrointestinal: Present: tender, non-distended Localized gastrointestinal: tender: RLQ, LLQ Female genitourinary: Present: deferred - Rectal Rectal Exam: deferred - Integumentary Integumentary: Present: warm, dry - Musculoskeletal Musculoskeletal: strength equal bilaterally - Psychiatric Psychiatric: cooperative - Neurologic Neurologic: moves all extremities Results - Labs CBC & Chem 7: 12/30/18 00:49 12/30/18 00:49 Labs: Laboratory Last Values WBC 8.1 K/mm3 (4.5-11.0) 12/29/18 22:17 RBC 3.94 M/mm3 (3.65-5.03) 12/29/18 22:17 Hgb 11.3 gm/dl (10.1-14.3) 12/29/18 22:17 Hct 32.9 % (30.3-42.9) 12/29/18 22:17 MCV 84 fl (79-97) 12/29/18 22:17 MCH 29 pg (28-32) 12/29/18 22:17 MCHC 35 % (30-34) H 12/29/18 22:17 RDW 13.8 % (13.2-15.2) 12/29/18 22:17 Plt Count 341 K/mm3 (140-440) 12/29/18 22:17 Lymph % (Auto) 27.2 % (13.4-35.0) 12/29/18 22:17 Pettis % (Auto) 9.9 % (0.0-7.3) H 12/29/18 22:17 Eos % (Auto) 2.6 % (0.0-4.3) 12/29/18 22:17 Baso % (Auto) 0.3 % (0.0-1.8) 12/29/18 22:17 Lymph # 2.2 K/mm3 (1.2-5.4) 12/29/18 22:17 Pettis # 0.8 K/mm3 (0.0-0.8) 12/29/18 22:17 Eos # 0.2 K/mm3 (0.0-0.4) 12/29/18 22:17 Baso # 0.0 K/mm3 (0.0-0.1) 12/29/18 22:17 Seg Neutrophils % 60.0 % (40.0-70.0) 12/29/18 22:17 Seg Neutrophils # 4.8 K/mm3 (1.8-7.7) 12/29/18 22:17 PT 12.7 Sec. (12.2-14.9) 12/29/18 22:17 INR 0.98 (0.87-1.13) 12/29/18 22:17 APTT 28.5 Sec. (24.2-36.6) 12/29/18 22:17 VBG pH 7.365 (7.320-7.420) 12/29/18 22:17 Sodium 134 mmol/L (137-145) L 12/29/18 22:17 Potassium 4.1 mmol/L (3.6-5.0) 12/29/18 22:17 Chloride 94.8 mmol/L (98-107) L 12/29/18 22:17 Carbon Dioxide 28 mmol/L (22-30) 12/29/18 22:17 15 mmol/L 12/29/18 22:17 BUN 25 mg/dL (7-17) H 12/29/18 22:17 1.4 mg/dL (0.7-1.2) H 12/29/18 22:17 Estimated GFR 38 ml/min 12/29/18 22:17 18 % 12/29/18 22:17 Glucose 202 mg/dL (65-100) H 12/29/18 22:17 POC Glucose 213 (70-105) H 12/29/18 22:22 Calcium 9.5 mg/dL (8.4-10.2) 12/29/18 22:17 0.20 mg/dL (0.1-1.2) 12/29/18 22:17 AST 14 units/L (5-40) 12/29/18 22:17 ALT 15 units/L (7-56) 12/29/18 22:17 106 units/L (35-129) 12/29/18 22:17 < 0.010 ng/mL (0.00-0.029) 12/29/18 22:17 7.5 g/dL (6.3-8.2) 12/29/18 22:17 3.9 g/dL (3.9-5) 12/29/18 22:17 1.1 % 12/29/18 22:17 Assessment and Plan Assessment and plan: Chest pain radiating to the back r/o ACS vs aortic dissection LQ abdominal pain CT scan of the abd/pelvis Renal insufficiency(likely due to dehydration IVF for hydration/renal perfusion Uncontrol DM type 2 Insulin per sliding scale Hgb A1c DM education Hyperlipidemia Continue home meds HTN Continue home meds GERD Chronic Constipation Continue stool softner Consult GI for evaluation Additional Plan: Admit to medtele Continue CE x2 Monitor BP Accu check ACHS with insulin per sliding scale Plan or care d/w pt, voice understanding Advance Directives: Yes VTE prophylaxis?: Mechanical Plan of care discussed with patient/family: Yes
[2018-12-30 00:58] LABS: Basophils % (Auto) 0.4 % (0.0-1.8); Eosinophils # (Auto) 0.3 K/mm3 (0.0-0.4); Eosinophils % (Auto) 3.2 % (0.0-4.3); Hemoglobin 11.7 gm/dl (10.1-14.3); Lymphocytes # (Auto) 2.7 K/mm3 (1.2-5.4); Lymphocytes % (Auto) 27.3 % (13.4-35.0); Monocytes # (Auto) 1.1 K/mm3 (0.0-0.8); Monocytes % (Auto) 10.5 % (0.0-7.3)
[2018-12-30 01:26] LABS: Calcium 9.7 mg/dL (8.4-10.2)
[2018-12-30 01:30] LABS: Hematocrit 35.2 % (30.3-42.9); Mean Corpuscular HGB Conc 34 % (30-34); Mean Corpuscular Volume 83 fl (79-97); Platelet Count 378 K/mm3 (140-440); Red Blood Count 4.22 M/mm3 (3.65-5.03); Red Cell Distribution Width 13.8 % (13.2-15.2)
[2018-12-30] MEDS ORDERED: MORPHINE ONE (01:50)
[2018-12-30] MEDS: MORPHINE IV PRN ×3 (01:53→19:31)
[2018-12-30] MEDS: PEPCID IV SCH ×2 (03:10→10:05)
[2018-12-30] MEDS: SODIUM CHLORIDE FLUSH SYRINGE 10 ML IV SCH ×3 (03:10→21:35)
--- NOTE | 2018-12-30 03:10 | Cat Scan Report ---
CT ABDOMEN AND PELVIS WITHOUT CONTRAST INDICATION: ABDOMINAL PAIN, CHRONIC CONSTIPATION. TECHNIQUE: Axial CT images were obtained through the abdomen and pelvis without IV contrast. All CT scans at [facility] location are performed using CT dose reduction for ALARA by means of automated exposure control. COMPARISON: None available. FINDINGS: LOWER CHEST: Mild linear bibasilar atelectasis/scarring. LIVER: No significant abnormality. GALLBLADDER: No significant abnormality. BILE DUCTS: No significant abnormality. PANCREAS: No significant abnormality. SPLEEN: No significant abnormality. ADRENALS: No significant abnormality. RIGHT KIDNEY and URETER: No significant abnormality. LEFT KIDNEY and URETER: No significant abnormality. STOMACH and SMALL BOWEL: No significant abnormality. COLON: Moderate amount of solid stool characteristic for constipation. Moderate sigmoid diverticulosi s without CT evidence for diverticulitis. APPENDIX: Normal PERITONEUM: No free fluid. No free air. No fluid collection. LYMPH NODES: No significant adenopathy. AORTA and ARTERIES: No significant abnormality. IVC and VEINS: No significant abnormality. URINARY BLADDER: No significant abnormality. REPRODUCTIVE ORGANS: Uterus absent. ADDITIONAL FINDINGS: None. SKELETAL SYSTEM: Moderate degenerative changes lumbar spine IMPRESSION: 1. Sigmoid diverticulosis without diverticulitis. 2. Moderate constipation. 3. No urinary tract calculi or hydronephrosis. Signer Name: Jesus Garcia MD Signed: 12/30/2018 3:06 AM Workstation Name: [employer]
--- NOTE | 2018-12-30 06:03 | Event Note ---
Seen and examined, discussed with nurse practitioner. This is a 63-year-old woman with a history of hypertension, diabetes comes emergency room with complaints of left substernal chest pain, bilateral shoulder pains, feeling like someone standing on her chest and associated with nausea vomiting and shortness of breath. agree with stress test
[2018-12-30] MEDS ORDERED: LEXISCAN IV ONE ×2 (07:00→07:06)
[2018-12-30] MEDS: HumuLIN R SUB-Q SCH ×4 (08:06→21:34)
[2018-12-30] MEDS ORDERED: D50W (25GM) Syringe IV PRN (08:30)
--- NOTE | 2018-12-30 08:56 | Event Note ---
Date: 12/30/18 This is a follow-up from an admission earlier this morning. We'll continue the plan as outlined in H&P. Patient seen and examined.
[2018-12-30] MEDS ORDERED: CITRATE OF MAGNESIA PO ONE (10:00)
[2018-12-30] MEDS ORDERED: PROTONIX PO SCH (10:00)
[2018-12-30] MEDS: ZESTRIL PO SCH (10:04)
[2018-12-30] MEDS: LOVENOX SUB-Q SCH (10:05)
--- NOTE | 2018-12-30 10:38 | Consultation ---
History of Present Illness Consult date: 12/30/18 Consult reason: chest pain History of present illness: Patient is a 63-year old woman who does not speak Italian. History taken by use of spanish interpreter/translator phone. Patient was brought in with complaints of back pain, chest pain with nausea vomiting for several days. Noted hypertensive on presentation. Patient has a history of hypertension and diabetes. Her latest cardiac workup was done at this hospital 6 months ago. She had a normal stress thallium test and a well preserved left ventricular ejection fraction by echocardiogram. Initial workup in the emergency department revealed acute renal failure and constipation. Cycled troponins were negative. A chest x-ray done was also negative. 12 lead ECG shows a normal sinus rhythm. No acute ST or T-wave changes. Past History Past Medical History: diabetes, hypertension, hyperlipidemia Past Surgical History: No surgical history Social history: no significant social history Family history: no significant family history Medications and Allergies Allergies Allergy/AdvReac Type Severity Reaction Status Date / Time No Known Allergies Allergy Verified 10/14/18 12:46 Home Medications Medication Instructions Recorded Confirmed Last Taken Type Aspirin [Aspirin BABY CHEW TAB] 81 mg PO QDAY 02/16/15 07/07/18 02/15/15 History Losartan/Hydrochlorothiazide 1 each PO QDAY 07/07/18 07/07/18 Unknown History [Hyzaar 100-12.5 TAB] Sitagliptin Phos/Metformin HCl 1 tab PO QDAY 07/07/18 07/07/18 Unknown History [Janumet XR 100-1,000 mg] amLODIPine [Norvasc] 10 mg PO DAILY #30 tab 07/08/18 Unknown Rx Acetaminophen/Codeine [Tylenol 1 tab PO Q8H PRN #12 tab 09/03/18 Unknown Rx /Codeine # 3 tab] Dicyclomine [Bentyl] 10 mg PO QID PRN #20 capsule 10/14/18 Unknown Rx Docusate Sodium [Colace] 100 mg PO BID PRN #20 capsule 10/14/18 Unknown Rx Ondansetron [Zofran Odt] 4 mg PO Q8HR PRN #10 tab.rapdis 10/14/18 Unknown Rx Polyethylene Glycol 3350 [Miralax] 7 gm PO DAILY PRN #1 powder 10/14/18 Unknown Rx Active Meds: Active Medications Acetaminophen (Tylenol) 650 mg PO Q4H PRN PRN Reason: Pain MILD(1-3)/Fever >100.5/CAICEDO Aspirin (Ecotrin) 325 mg PO QDAY [facility] Atorvastatin Calcium (Lipitor) 20 mg PO QHS [facility] Dextrose (D50w (25gm) Syringe) 50 ml IV PRN PRN PRN Reason: Hypoglycemia Last Admin: 12/30/18 08:23 Dose: 50 ml Documented by: Enoxaparin Sodium (Lovenox) 40 mg SUB-Q QDAY@1000 [facility] Last Admin: 12/30/18 10:05 Dose: 40 mg Documented by: Famotidine (Pepcid) 20 mg IV QAM [facility] Last Admin: 12/30/18 10:05 Dose: 20 mg Documented by: Hydralazine HCl (Apresoline) 5 mg IV Q6H PRN PRN Reason: Hypertension Hydralazine HCl (Apresoline) 10 mg IV Q6H PRN PRN Reason: FOR SBP > target Insulin Human Regular (Humulin R) 0 units SUB-Q ACHS [facility]; Protocol Last Admin: 12/30/18 08:06 Dose: Not Given Documented by: Lisinopril (Zestril) 5 mg PO QDAY [facility] Last Admin: 12/30/18 10:04 Dose: 5 mg Documented by: Morphine Sulfate (Morphine) 2 mg IV Q4H PRN PRN Reason: Pain, Moderate (4-6) Last Admin: 12/30/18 06:23 Dose: 2 mg Documented by: Nitroglycerin (Nitrostat) 0.4 mg SL Q5M PRN PRN Reason: Chest Pain Last Admin: 12/30/18 08:38 Dose: 0.4 mg Documented by: Ondansetron HCl (Zofran) 4 mg IV Q8H PRN PRN Reason: Nausea And Vomiting Polyethylene Glycol (Miralax 3350) 17 gm PO QDAY PRN PRN Reason: Constipation Sodium Chloride (Sodium Chloride Flush Syringe 10 Ml) 10 ml IV BID [facility] Last Admin: 12/30/18 10:06 Dose: 10 ml Documented by: Sodium Chloride (Sodium Chloride Flush Syringe 10 Ml) 10 ml IV PRN PRN PRN Reason: LINE FLUSH Zolpidem Tartrate (Ambien) 5 mg PO QHS PRN PRN Reason: Sleep Physical Examination Vital Signs Temp Pulse BP Pulse Ox 98.6 F 84 153/67 95 09/05/19 21:18 12/29/18 21:18 12/29/18 21:18 12/29/18 21:18 General appearance: no acute distress Neck: Positive: trachea midline Cardiac: Positive: Reg Rate and Rhythm Lungs: Positive: Decreased Breath Sounds Neuro: Positive: Grossly Intact Extremities: Absent: edema Results 12/30/18 00:49 12/30/18 00:49 Cardiac Enzymes 12/29/18 Range/Units 22:17 AST 14 (5-40) units/L Coagulation 12/29/18 Range/Units 22:17 PT 12.7 (12.2-14.9) Sec. INR 0.98 (0.87-1.13) APTT 28.5 (24.2-36.6) Sec. Lipids 12/30/18 Range/Units 05:46 Triglycerides 87 (2-149) mg/dL Cholesterol 175 (50-199) mg/dL HDL Cholesterol 35 L (40-59) mg/dL Cholesterol/HDL Ratio 5.00 % CBC 12/29/18 12/30/18 Range/Units 22:17 00:49 WBC 8.1 10.0 (4.5-11.0) K/mm3 RBC 3.94 4.22 (3.65-5.03) M/mm3 Hgb 11.3 11.7 (10.1-14.3) gm/dl Hct 32.9 35.2 (30.3-42.9) % Plt Count 341 378 (140-440) K/mm3 Lymph # 2.2 2.7 (1.2-5.4) K/mm3 [place] # 0.8 1.1 H (0.0-0.8) K/mm3 Eos # 0.2 0.3 (0.0-0.4) K/mm3 Baso # 0.0 0.0 (0.0-0.1) K/mm3 Comprehensive Metabolic Panel 12/29/18 12/30/18 Range/Units 22:17 00:49 Sodium 134 L 140 (137-145) mmol/L Potassium 4.1 4.5 (3.6-5.0) mmol/L Chloride 94.8 L 96.4 L (98-107) mmol/L Carbon Dioxide 28 26 (22-30) mmol/L BUN 25 H 23 H (7-17) mg/dL Creatinine 1.4 H 1.5 H (0.7-1.2) mg/dL Glucose 202 H 83 (65-100) mg/dL Calcium 9.5 9.7 (8.4-10.2) mg/dL AST 14 (5-40) units/L ALT 15 (7-56) units/L Alkaline Phosphatase 106 (35-129) units/L Total Protein 7.5 (6.3-8.2) g/dL Albumin 3.9 (3.9-5) g/dL Assessment and Plan Back pain Chest pain, atypical normal ECG Acute renal failure Constipation Hypertension Diabetes Normal MPI 06/2018. Normal LVEF 50-55% by echo 06/2018.
[2018-12-30] MEDS: MIRALAX 3350 PO PRN (21:45)
[2018-12-30] MEDS ORDERED: FLEET MINERAL OIL PR PRN (23:15)
[2018-12-31] MEDS: MORPHINE IV PRN ×2 (04:21→22:11)
[2018-12-31] MEDS: HumuLIN R SUB-Q SCH ×4 (08:42→22:09)
--- NOTE | 2018-12-31 08:59 | Discharge Summary ---
Providers - Providers Date of Admission: 12/29/18 23:51 Date of discharge: 01/01/19 Attending physician: MEREDITH PRAKASH 12/30/18 Consult to Cardiac Rehabilitation [CONS] Routine Reason For Exam: Phase I 12/30/18 00:32 Consult to Cardiology [CONS] Routine Consulting Provider: LUTHER SWANSON Reason For Exam: vhest pain Primary care physician: SERVICE UNIT OPERATOR Hospitalization Reason for admission: Right upper back pain Condition: Fair Hospital course: Patient is a 63-year old woman who does not speak Sami. History retrieved from the ER record and from the family at the bedside. Patient was brought in with complaints of back pain, chest pain with nausea vomiting for several days. Noted hypertensive on presentation. Patient has a history of hypertension and diabetes. Her latest cardiac workup was done at this hospital 6 months ago. She had a normal stress thallium test and a well preserved left ventricular ejection fraction by echocardiogram. Initial workup in the emergency department revealed acute renal failure and constipation. Cycled troponins were negative. A chest x-ray done was also negative. 12 lead ECG shows a normal sinus rhythm. No acute ST or T-wave changes. Cardiology saw the patient in consultation and did not feel that this was cardiac related. The patient's primary complaint was right upper back pain was the reason for admission. Patient was noted to have pain in the right shoulder and scapular region with tenderness on exam. The patient was also noted to have abdominal pain which a CT scan was obtained and revealed stool throughout the colon. Patient received stool softener/laxative as and a discussion was had with the patient and the family with regards to abdominal pain likely related to the opioid-induced constipation. Patient is noted to have narcotics which she takes at home for the chronic shoulder and scapular pain. The patient has some mild renal insufficiency with creatinine of 1.5. Patient advised to increase fluid hydration. Creatinine stable in the Patient will be discharged home and is to follow with PCP. Dedicated discharge time 32 minutes. Disposition: -01 TO HOME OR SELFCARE Time spent for discharge: 32 - Discharge Diagnoses (1) Costochondral chest pain Status: Acute (2) Chest pain Status: Acute (3) Hypertension Status: Acute Qualifiers: Hypertension type: essential hypertension Qualified Code(s): I10 - Essential (primary) hypertension (4) Type 2 diabetes mellitus Status: Acute Qualifiers: Diabetes mellitus complication status: without complication Qualified Code(s): E11.9 - Type 2 diabetes mellitus without complications Core Measure Documentation - Palliative Care Palliative Care/ Comfort Measures: Not Applicable - Core Measures Any of the following diagnoses?: none Exam - Constitutional Vitals: Temp Pulse Resp BP Pulse Ox 97.8 F 88 20 157/66 98 12/31/18 08:00 12/31/18 08:00 12/31/18 08:00 12/31/18 08:00 12/31/18 08:00 General appearance: Present: no acute distress, well-nourished - EENT Eyes: Present: PERRL ENT: hearing intact, clear oral mucosa - Neck Neck: Present: supple, normal ROM - Respiratory Respiratory effort: normal Respiratory: bilateral: CTA - Cardiovascular Heart Sounds: Present: S1 & S2. Absent: rub, click - Extremities Extremities: pulses symmetrical, No edema Peripheral Pulses: within normal limits - Abdominal General gastrointestinal: Present: soft, non-tender, non-distended, normal bowel sounds Female genitourinary: Present: normal - Integumentary Integumentary: Present: clear, warm, dry - Musculoskeletal Musculoskeletal: gait normal, strength equal bilaterally - Psychiatric Psychiatric: appropriate mood/affect, intact judgment & insight - Neurologic Neurologic: CNII-XII intact, moves all extremities Plan Activity: no restrictions Weight Bearing Status: Full Weight Bearing Diet: regular Follow up with: PRIMARY CAREMD [Primary Care Provider] - 3-5 Days KISHOR BOOTH MD [Staff Physician] - 7 Days Prescriptions: Aspirin [Aspirin BABY CHEW TAB] 81 mg PO QDAY #30 tab.chew Dicyclomine [Bentyl] 10 mg PO QID PRN #20 capsule PRN Reason: Spasms Docusate Sodium [Colace CAP] 100 mg PO BID PRN #20 capsule PRN Reason: Constipation glipiZIDE [Glucotrol] 10 mg PO BID #60 tablet Sitagliptin Phos/Metformin HCl [Janumet XR 100-1,000 mg] 1 tab PO QDAY #30 tbmp.24hr Polyethylene Glycol 3350 [Miralax] 7 gm PO DAILY PRN #1 powder PRN Reason: Constipation
--- NOTE | 2018-12-31 09:06 | Progress Note ---
Subjective Date of service: 12/31/18 Interval history: Patient seen and examined by me chief complaint is constipation Right upper back pain - main reason for admission Patient has right shoulder and scapular tenderness on exam with pain upon right arm abduction Atypical chest pain MPI 06/2018 showing no evidence of ischemia (images were reviewed by me) and normal LVEF CXR compared to 06/2018 showing no interval changes Recent CTA chest showing no acute pathology (no PE, no dissection) ECG showing SR Troponin negative x 3 Systemic Hypertension Type II DM Acute renal failure Constipation No further cardiac work-up is needed for non-cardiac back/chest pain. Objective Vital Signs Temp Pulse Resp BP BP Pulse Ox 12/31/18 08:00 97.8 F 88 20 157/66 98 12/31/18 04:25 87 12/31/18 04:13 98.0 F 91 H 18 156/67 99 12/30/18 23:29 98.0 F 90 20 148/60 97 12/30/18 20:01 97 12/30/18 19:31 98.0 F 88 20 155/62 98 12/30/18 19:25 89 12/30/18 16:12 98.4 F 78 18 115/55 99 12/30/18 11:40 96 12/30/18 11:31 98.0 F 79 18 125/63 98 12/30/18 10:04 73 133/56 - Physical Examination General: Appears Well, No Apparent Distress HEENT: Positive: PERRL Neck: Positive: trachea midline Cardiac: Positive: Reg Rate and Rhythm, S1/S2 Lungs: Positive: Normal Exam Neuro: Positive: Grossly Intact Extremities: Absent: edema
[2018-12-31] MEDS: LOVENOX SUB-Q SCH (09:41)
[2018-12-31] MEDS: MIRALAX 3350 PO PRN (09:41)
[2018-12-31] MEDS: ECOTRIN PO SCH (09:41)
[2018-12-31] MEDS: ZESTRIL PO SCH (09:42)
[2018-12-31] MEDS: PEPCID IV SCH (09:42)
[2018-12-31 09:43] LABS: Calcium 9.5 mg/dL (8.4-10.2)
[2018-12-31] MEDS ORDERED: CEPHULAC PO ONE (10:00)
[2018-12-31] MEDS: SODIUM CHLORIDE FLUSH SYRINGE 10 ML IV SCH ×2 (11:29→22:09)
[2018-12-31] MEDS ORDERED: REGLAN IV PRN (17:37)
[2018-12-31] MEDS ORDERED: CITRATE OF MAGNESIA PO ONE (18:00)
[2018-12-31] MEDS ORDERED: GOLYTELY PO ONE (18:00)
--- NOTE | 2019-01-01 08:11 | Progress Note ---
Assessment and Plan Assessment and plan: Chest pain. Cardiology evaluated the patient and felt that the pain was atypical. MPI June 2018 showed no evidence of ischemia. Chest x-ray showed no changes. Recent CTA of chest showed no acute pathology for PE or dissection. Troponin negative 3. ECG showing normal sinus rhythm. Patient's pain is reproducible with palpation. Etiology of pain is costochondritis. LQ abdominal pain CT scan of the abd/pelvis revealed diverticulosis and moderate constipation. Constipation. Patient given MiraLAX, lactulose and mag citrate with no relief. Consider GI consultation if no bowel movement. Renal insufficiency(likely due to dehydration IVF for hydration/renal perfusion Uncontrolled DM type 2 Insulin per sliding scale Hgb A1c DM education Hyperlipidemia Continue home meds HTN Continue home meds GERD Disposition. We'll likely discharge the patient able to have bowel movement. - Patient Problems (1) Costochondral chest pain Current Visit: Yes Status: Acute (2) Chest pain Current Visit: Yes Status: Acute (3) Hypertension Current Visit: No Status: Acute Qualifiers: Hypertension type: essential hypertension Qualified Code(s): I10 - Essential (primary) hypertension (4) Type 2 diabetes mellitus Current Visit: No Status: Acute Qualifiers: Diabetes mellitus complication status: without complication Qualified Code(s): E11.9 - Type 2 diabetes mellitus without complications History Interval history: No new issues overnight. Hospitalist Physical - Constitutional Vitals: Temp Pulse Resp BP Pulse Ox 98.3 F 94 H 20 157/70 97 01/01/19 05:23 01/01/19 05:22 01/01/19 05:22 01/01/19 05:22 01/01/19 05:22 General appearance: Present: no acute distress, well-nourished - EENT Eyes: Present: PERRL, EOM intact ENT: hearing intact, clear oral mucosa, dentition normal - Neck Neck: Present: supple, normal ROM - Respiratory Respiratory effort: normal Respiratory: bilateral: CTA - Cardiovascular Rhythm: regular Heart Sounds: Present: S1 & S2. Absent: gallop, rub - Extremities Extremities: no ischemia, No edema, Full ROM - Abdominal General gastrointestinal: soft, non-tender, non-distended, normal bowel sounds - Integumentary Integumentary: Present: clear, warm, dry - Neurologic Neurologic: CNII-XII intact, moves all extremities Results - Labs CBC & Chem 7: 12/30/18 00:49 12/31/18 09:11 Labs: Laboratory Last Values WBC 10.0 K/mm3 (4.5-11.0) 12/30/18 00:49 RBC 4.22 M/mm3 (3.65-5.03) 12/30/18 00:49 Hgb 11.7 gm/dl (10.1-14.3) 12/30/18 00:49 Hct 35.2 % (30.3-42.9) 12/30/18 00:49 MCV 83 fl (79-97) 12/30/18 00:49 MCH 28 pg (28-32) 12/30/18 00:49 MCHC 34 % (30-34) 12/30/18 00:49 RDW 13.8 % (13.2-15.2) 12/30/18 00:49 Plt Count 378 K/mm3 (140-440) 12/30/18 00:49 Lymph % (Auto) 27.3 % (13.4-35.0) 12/30/18 00:49 [place] % (Auto) 10.5 % (0.0-7.3) H 12/30/18 00:49 Eos % (Auto) 3.2 % (0.0-4.3) 12/30/18 00:49 Baso % (Auto) 0.4 % (0.0-1.8) 12/30/18 00:49 Lymph # 2.7 K/mm3 (1.2-5.4) 12/30/18 00:49 [place] # 1.1 K/mm3 (0.0-0.8) H 12/30/18 00:49 Eos # 0.3 K/mm3 (0.0-0.4) 12/30/18 00:49 Baso # 0.0 K/mm3 (0.0-0.1) 12/30/18 00:49 Seg Neutrophils % 58.6 % (40.0-70.0) 12/30/18 00:49 Seg Neutrophils # 5.8 K/mm3 (1.8-7.7) 12/30/18 00:49 PT 12.7 Sec. (12.2-14.9) 12/29/18 22:17 INR 0.98 (0.87-1.13) 12/29/18 22:17 APTT 28.5 Sec. (24.2-36.6) 12/29/18 22:17 VBG pH 7.365 (7.320-7.420) 12/29/18 22:17 Sodium 131 mmol/L (137-145) L D 12/31/18 09:11 Potassium 4.9 mmol/L (3.6-5.0) 12/31/18 09:11 Chloride 89.5 mmol/L (98-107) L 12/31/18 09:11 Carbon Dioxide 29 mmol/L (22-30) 12/31/18 09:11 17 mmol/L 12/31/18 09:11 BUN 29 mg/dL (7-17) H 12/31/18 09:11 1.6 mg/dL (0.7-1.2) H 12/31/18 09:11 Estimated GFR 33 ml/min 12/31/18 09:11 18 % 12/31/18 09:11 Glucose 273 mg/dL (65-100) H 12/31/18 09:11 POC Glucose 198 (70-105) H 12/31/18 22:04 Calcium 9.5 mg/dL (8.4-10.2) 12/31/18 09:11 0.20 mg/dL (0.1-1.2) 12/29/18 22:17 AST 14 units/L (5-40) 12/29/18 22:17 ALT 15 units/L (7-56) 12/29/18 22:17 106 units/L (35-129) 12/29/18 22:17 < 0.010 ng/mL (0.00-0.029) 12/30/18 11:46 7.5 g/dL (6.3-8.2) 12/29/18 22:17 3.9 g/dL (3.9-5) 12/29/18 22:17 1.1 % 12/29/18 22:17 Triglycerides 87 mg/dL (2-149) 12/30/18 05:46 Cholesterol 175 mg/dL (50-199) 12/30/18 05:46 142 mg/dL (50-130) H 12/30/18 05:46 35 mg/dL (40-59) L 12/30/18 05:46 5.00 % 12/30/18 05:46 Active Medications - Current Medications Current Medications: Generic Name Dose Route Start Last Admin Trade Name Freq PRN Reason Stop Dose Admin Acetaminophen 650 mg 12/30/18 00:32 Tylenol PO Q4H PRN Pain MILD(1-3)/Fever >100.5/CAICEDO Aspirin 325 mg 12/31/18 10:00 12/31/18 09:41 Ecotrin PO 325 mg QDAY GILMA Administration Atorvastatin Calcium 20 mg 12/30/18 22:00 12/31/18 22:11 Lipitor PO 20 mg QHS GILMA Administration Dextrose 50 ml 12/30/18 08:30 12/30/18 08:23 D50w (25gm) Syringe IV 50 ml PRN PRN Administration Hypoglycemia Enoxaparin Sodium 40 mg 12/30/18 10:00 12/31/18 09:41 Lovenox SUB-Q 40 mg QDAY@1000 GILMA Administration Famotidine 20 mg 12/30/18 01:00 12/31/18 09:42 Pepcid IV 20 mg QAM GILMA Administration Hydralazine HCl 5 mg 12/30/18 00:07 Apresoline IV Q6H PRN Hypertension Hydralazine HCl 10 mg 12/30/18 00:32 Apresoline IV Q6H PRN FOR SBP > target Insulin Human Regular 0 units 12/30/18 07:30 12/31/18 22:09 Humulin R SUB-Q 1 units ACHS GILMA Administration Protocol Lactulose 20 gm 01/01/19 12:00 Cephulac PO Q6HR GILMA Lisinopril 5 mg 12/30/18 10:00 12/31/18 09:42 Zestril PO 5 mg QDAY GILMA Administration Metoclopramide HCl 10 mg 12/31/18 17:37 Reglan IV Q6H PRN Nausea And Vomiting Mineral Oil 133 ml 12/30/18 23:15 12/31/18 01:59 Fleet Mineral Oil CA 133 ml QDAY PRN Administration Constipation Morphine Sulfate 2 mg 12/30/18 00:07 12/31/18 22:11 Morphine IV 2 mg Q4H PRN Administration Pain, Moderate (4-6) Nitroglycerin 0.4 mg 12/30/18 00:32 12/30/18 08:38 Nitrostat SL 0.4 mg Q5M PRN Administration Chest Pain Ondansetron HCl 4 mg 12/30/18 00:32 12/31/18 09:41 Zofran IV 4 mg Q8H PRN Administration Nausea And Vomiting Polyethylene Glycol 17 gm 12/30/18 10:00 12/31/18 09:41 Miralax 3350 PO 17 gm QDAY PRN Administration Constipation Sodium Chloride 10 ml 12/30/18 01:00 12/31/18 22:09 Sodium Chloride Flush Syringe 10 Ml IV 10 ml BID GILMA Administration Sodium Chloride 10 ml 12/30/18 00:32 Sodium Chloride Flush Syringe 10 Ml IV PRN PRN LINE FLUSH Zolpidem Tartrate 5 mg 12/30/18 00:32 Ambien PO QHS PRN Sleep Nutrition/Malnutrition Assess - Dietary Evaluation Nutrition/Malnutrition Findings: Nutrition Notes Start: 12/30/18 12:59 Freq: Status: Active Protocol: Document 12/30/18 12:59 RS (Rec: 12/30/18 13:26 RS [id number]) Co-Sign 12/30/18 12:59 LP Nutrition Notes Need for Assessment generated from: MST Initial or Follow up Assessment Current Diagnosis Diabetes,Hypertension Other Pertinent Diagnosis GERD Current Diet Cardiac Diet Labs/Tests BUN 23 Cr: 1.5 Pertinent Medications reviewed Height 5 ft 7 in Weight 84.1 kg Usual Body Weight 80.5 kg [place] Body Weight (kg) 61.36 BMI 29.0 Intake Prior to Admission Fair Weight change and time frame 8lb loss since 10/24/2018 per family report. 5% wt loss in 2 months (not significant) Weight Status Overweight Subjective/Other Information MST screen. Family present and translated for pt. Observed 50% of breafkast consumed. 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 Handout on GERD given to son to read to pt. Burn Absent Trauma Absent GI Symptoms Nausea,Vomiting Food Allergy No Current % PO Poor (25-49%) Minimum of two criteria No #1 Nutrition Diagnosis Inadequate oral intake Etiology N/V As Evidenced by Signs and Symptoms observed 50% of breakfast consumed, family report of poor appetite Is patient on ventilator? No Is Patient Ambulatory and/or Out of Bed Yes REE-([place]-ambulatory/OOB) [ 1863.719 NUTR.MSJOOB] Calculation Used for Recommendations James Pederson Additional Notes Pro needs(1.0-1.2): 84-101g/ day Fluid needs: 1ml/kcal Nutrition Intervention Change Diet Order: Continue cardiac diet Teaching Recipient Family Learning Readiness Good Teaching Methods Handout Response to Teaching Verbalize understanding Education Handouts Provided AND GERD MNT Barriers to Learning Language RD phone number provided No Patient aware of follow up options Yes Goal #1 Achieve >75% EER Anticipated Discharge Needs: Continue cardiac diet post discharge Follow-Up By: 01/02/19 Additional Comments F/U to observe PO intake and appetite changes.
[2019-01-01 08:42] VITALS: BP 148/60
[2019-01-01] MEDS ORDERED: TORADOL IV ONE (09:10)
[2019-01-01] MEDS: HumuLIN R SUB-Q SCH (09:32)
[2019-01-01] MEDS: LOVENOX SUB-Q SCH (09:33)
[2019-01-01] MEDS: ZESTRIL PO SCH (09:34)
[2019-01-01] MEDS: ECOTRIN PO SCH (09:34)
[2019-01-01] MEDS: PEPCID IV SCH (09:34)
[2019-01-01] MEDS: SODIUM CHLORIDE FLUSH SYRINGE 10 ML IV SCH (09:35)
--- NOTE | 2019-01-01 10:28 | XRay Report ---
EXAMINATION: Abdominal radiograph, one view, 01/01/2019 CLINICAL INFORMATION: Abdominal pain. Chronic constipation. COMPARISON: CT of the abdomen and pelvis, 12/30/2018 FINDINGS: The bowel gas pattern appears grossly nonobstructive. There is a moderate amount of retained stool an d gaseous distention throughout the colon. Evaluation of bony structures demonstrates no evidence of acute bony abnormality. IMPRESSION: 1. No radiographic evidence of acute intra-abdominal process. Signer Name: Sondra Cleaning MD Signed: 01/01/2019 10:24 AM Workstation Name: [id number]
[2019-01-01] MEDS ORDERED: CEPHULAC PO SCH (12:00)
--- NOTE | 2019-01-02 13:47 | Progress Note ---
Assessment and Plan Assessment and plan: Chest pain. Cardiology evaluated the patient and felt that the pain was atypical. MPI June 2018 showed no evidence of ischemia. Chest x-ray showed no changes. Recent CTA of chest showed no acute pathology for PE or dissection. Troponin negative 3. ECG showing normal sinus rhythm. Patient's pain is reproducible with palpation. Etiology of pain is costochondritis. LQ abdominal pain CT scan of the abd/pelvis revealed diverticulosis and moderate constipation. Constipation. Patient given MiraLAX, lactulose and mag citrate with no relief. Consider GI consultation if no bowel movement. Renal insufficiency(likely due to dehydration IVF for hydration/renal perfusion Uncontrolled DM type 2 Insulin per sliding scale Hgb A1c DM education Hyperlipidemia Continue home meds HTN Continue home meds GERD Disposition. We'll likely discharge the patient able to have bowel movement. - Patient Problems (1) Costochondral chest pain Status: Acute (2) Chest pain Status: Acute (3) Hypertension Status: Acute Qualifiers: Hypertension type: essential hypertension Qualified Code(s): I10 - Ess ential (primary) hypertension (4) Type 2 diabetes mellitus Status: Acute Qualifiers: Diabetes mellitus complication status: without complication Qualified Code(s): E11.9 - Type 2 diabetes mellitus without complications History Interval history: No new issues overnight. Hospitalist Physical - Constitutional Vitals: Temp Pulse Resp BP Pulse Ox 99.1 F 100 H 20 148/60 98 01/01/19 07:54 01/01/19 12:00 01/01/19 10:00 01/01/19 09:34 01/01/19 10:00 General appearance: Present: no acute distress, well-nourished - EENT Eyes: Present: PERRL, EOM intact ENT: hearing intact, clear oral mucosa, dentition normal - Neck Neck: Present: supple, normal ROM - Respiratory Respiratory effort: normal Respiratory: bilateral: CTA - Cardiovascular Rhythm: regular Heart Sounds: Present: S1 & S2. Absent: gallop, rub - Extremities Extremities: no ischemia, No edema, Full ROM - Abdominal General gastrointestinal: soft, non-tender, non-distended, normal bowel sounds - Integumentary Integumentary: Present: clear, warm, dry - Neurologic Neurologic: CNII-XII intact, moves all extremities Results - Labs CBC & Chem 7: 12/30/18 00:49 12/31/18 09:11 Labs: Laboratory Last Values WBC 10.0 K/mm3 (4.5-11.0) 12/30/18 00:49 RBC 4.22 M/mm3 (3.65-5.03) 12/30/18 00:49 Hgb 11.7 gm/dl (10.1-14.3) 12/30/18 00:49 Hct 35.2 % (30.3-42.9) 12/30/18 00:49 MCV 83 fl (79-97) 12/30/18 00:49 MCH 28 pg (28-32) 12/30/18 00:49 MCHC 34 % (30-34) 12/30/18 00:49 RDW 13.8 % (13.2-15.2) 12/30/18 00:49 Plt Count 378 K/mm3 (140-440) 12/30/18 00:49 Lymph % (Auto) 27.3 % (13.4-35.0) 12/30/18 00:49 [place] % (Auto) 10.5 % (0.0-7.3) H 12/30/18 00:49 Eos % (Auto) 3.2 % (0.0-4.3) 12/30/18 00:49 Baso % (Auto) 0.4 % (0.0-1.8) 12/30/18 00:49 Lymph # 2.7 K/mm3 (1.2-5.4) 12/30/18 00:49 [place] # 1.1 K/mm3 (0.0-0.8) H 12/30/18 00:49 Eos # 0.3 K/mm3 (0.0-0.4) 12/30/18 00:49 Baso # 0.0 K/mm3 (0.0-0.1) 12/30/18 00:49 Seg Neutrophils % 58.6 % (40.0-70.0) 12/30/18 00:49 Seg Neutrophils # 5.8 K/mm3 (1.8-7.7) 12/30/18 00:49 PT 12.7 Sec. (12.2-14.9) 12/29/18 22:17 INR 0.98 (0.87-1.13) 12/29/18 22:17 APTT 28.5 Sec. (24.2-36.6) 12/29/18 22:17 VBG pH 7.365 (7.320-7.420) 12/29/18 22:17 Sodium 131 mmol/L (137-145) L D 12/31/18 09:11 Potassium 4.9 mmol/L (3.6-5.0) 12/31/18 09:11 Chloride 89.5 mmol/L (98-107) L 12/31/18 09:11 Carbon Dioxide 29 mmol/L (22-30) 12/31/18 09:11 17 mmol/L 12/31/18 09:11 BUN 29 mg/dL (7-17) H 12/31/18 09:11 1.6 mg/dL (0.7-1.2) H 12/31/18 09:11 Estimated GFR 33 ml/min 12/31/18 09:11 18 % 12/31/18 09:11 Glucose 273 mg/dL (65-100) H 12/31/18 09:11 POC Glucose 208 (70-105) H 01/01/19 11:51 Calcium 9.5 mg/dL (8.4-10.2) 12/31/18 09:11 0.20 mg/dL (0.1-1.2) 12/29/18 22:17 AST 14 units/L (5-40) 12/29/18 22:17 ALT 15 units/L (7-56) 12/29/18 22:17 106 units/L (35-129) 12/29/18 22:17 < 0.010 ng/mL (0.00-0.029) 12/30/18 11:46 7.5 g/dL (6.3-8.2) 12/29/18 22:17 3.9 g/dL (3.9-5) 12/29/18 22:17 1.1 % 12/29/18 22:17 Triglycerides 87 mg/dL (2-149) 12/30/18 05:46 Cholesterol 175 mg/dL (50-199) 12/30/18 05:46 142 mg/dL (50-130) H 12/30/18 05:46 35 mg/dL (40-59) L 12/30/18 05:46 5.00 % 12/30/18 05:46 Nutrition/Malnutrition Assess - Dietary Evaluation Nutrition/Malnutrition Findings: Nutrition Notes Start: 12/30/18 12:59 Freq: Status: Discharge Protocol: Document 12/30/18 12:59 RS (Rec: 12/30/18 13:26 RS [id number]) Co-Sign 12/30/18 12:59 LP Nutrition Notes Need for Assessment generated from: MST Initial or Follow up Assessment Current Diagnosis Diabetes,Hypertension Other Pertinent Diagnosis GERD Current Diet Cardiac Diet Labs/Tests BUN 23 Cr: 1.5 Pertinent Medications reviewed Height 5 ft 7 in Weight 84.1 kg Usual Body Weight 80.5 kg [place] Body Weight (kg) 61.36 BMI 29.0 Intake Prior to Admission Fair Weight change and time frame 8lb loss since 10/24/2018 per family report. 5% wt loss in 2 months (not significant) Weight Status Overweight Subjective/Other Information MST screen. Family present and translated for pt. Observed 50% of breafkast consumed. 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 Handout on GERD given to son to read to pt. Burn Absent Trauma Absent GI Symptoms Nausea,Vomiting Food Allergy No Current % PO Poor (25-49%) Minimum of two criteria No #1 Nutrition Diagnosis Inadequate oral intake Etiology N/V As Evidenced by Signs and Symptoms observed 50% of breakfast consumed, family report of poor appetite Is patient on ventilator? No Is Patient Ambulatory and/or Out of Bed Yes REE-([facility]-ambulatory/OOB) [ 1863.719 NUTR.MSJOOB] Calculation Used for Recommendations [facility] Additional Notes Pro needs(1.0-1.2): 84-101g/ day Fluid needs: 1ml/kcal Nutrition Intervention Change Diet Order: Continue cardiac diet Teaching Recipient Family Learning Readiness Good Teaching Methods Handout Response to Teaching Verbalize understanding Education Handouts Provided AND GERD MNT Barriers to Learning Language RD phone number provided No Patient aware of follow up options Yes Goal #1 Achieve >75% EER Anticipated Discharge Needs: Continue cardiac diet post discharge Follow-Up By: 01/02/19 Additional Comments F/U to observe PO intake and appetite changes.
== END 2019-01-01 13:02 | disposition home or self-care (01) ==
LOC: ED 20:56 → 4A 23:51
PROVIDERS: ADMIT Internal Medicine; ATTEND Hospitalist
DX: R07.89 Other chest pain (principal); N17.9 Acute kidney failure, unspecified; R11.2 Nausea with vomiting, unspecified; R10.30 Lower abdominal pain, unspecified; N28.9 Disorder of kidney and ureter, unspecified; E11.9 Type 2 diabetes mellitus without complications; E78.5 Hyperlipidemia, unspecified; I10 Essential (primary) hypertension; K21.9 Gastro-esophageal reflux disease without esophagitis; K59.00 Constipation, unspecified; G62.9 Polyneuropathy, unspecified; M19.90 Unspecified osteoarthritis, unspecified site; Z79.82 Long term (current) use of aspirin; Z86.711 Personal history of pulmonary embolism; Z90.710 Acquired absence of both cervix and uterus; Z87.891 Personal history of nicotine dependence
CPT/HCPCS: 36415; 71046; 74018; 74176; 80048; 80053; 80061; 82805; 82962; 84484; 85025; 85610; 85730; 87116; 93005; 93010; 94760; 96372; 96374; 96375; 96376; 99284; A9270; G0378; J1650; J1885; J2270; J2405; J3010; J1815; J2785

== ENCOUNTER 2021-04-10 00:21 | Emergency (ER) | payer SELFPAY ==
[2021-04-10 00:38] VITALS: BP 135/75
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
[2021-04-10 01:35] LABS: Basophils # (Auto) 0.1 K/mm3 (0.0-0.1); Basophils % (Auto) 0.6 % (0.0-1.8); Eosinophils # (Auto) 0.5 K/mm3 (0.0-0.4); Eosinophils % (Auto) 5.6 % (0.0-4.3); Hemoglobin 10.6 gm/dl (10.1-14.3); Lymphocytes % (Auto) 22.1 % (13.4-35.0); Mean Corpuscular HGB Conc 31 % (30-34); Mean Corpuscular Volume 78 fl (79-97); Monocytes # (Auto) 0.6 K/mm3 (0.0-0.8); Monocytes % (Auto) 6.3 % (0.0-7.3); Platelet Count 391 K/mm3 (140-440); Red Blood Count 4.34 M/mm3 (3.65-5.03); Red Cell Distribution Width 15.6 % (13.2-15.2)
[2021-04-10 01:59] LABS: Alanine Aminotransferase 16 units/L (7-56); Albumin 4.2 g/dL (3.9-5); BUN/Creatinine Ratio 18; Blood Urea Nitrogen 24 mg/dL (7-17); Calcium 9.8 mg/dL (8.4-10.2); Hemolysis Index 8
[2021-04-10] MEDS ORDERED: oxyCODONE /ACETAMINOPHEN 5-325MG TAB PO ONE (03:47)
--- NOTE | 2021-04-10 10:37 | Electrocardiograph Report ---
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
== END 2021-04-10 05:41 | disposition left against medical advice (07) ==
LOC: ED 00:21
DX: R07.89 Other chest pain (principal); Z53.21 Procedure and treatment not carried out due to patient leaving prior to being seen by health care provider
CPT/HCPCS: 36415; 71046; 80053; 84484; 85025; 93005

== ENCOUNTER 2021-12-16 00:01 | Emergency (ER) | payer OTHER ==
[2021-12-16] MEDS ORDERED: ASPIRIN 81 MG TAB CHEW PO ONE (08:38)
--- NOTE | 2021-12-16 08:41 | Electrocardiograph Report ---
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
[2021-12-16 09:37] LABS: Basophils % (Auto) 0.1 % (0.0-1.8); Hematocrit 30.3 % (30.3-42.9); Hemoglobin 9.8 gm/dl (10.1-14.3); Lymphocytes # (Auto) 0.9 K/mm3 (1.2-5.4); Lymphocytes % (Auto) 9.3 % (13.4-35.0); Mean Corpuscular HGB Conc 32 % (30-34); Mean Corpuscular Volume 87 fl (79-97); Monocytes # (Auto) 0.6 K/mm3 (0.0-0.8); Monocytes % (Auto) 5.7 % (0.0-7.3); Platelet Count 368 K/mm3 (140-440); Red Cell Distribution Width 16.4 % (13.2-15.2)
[2021-12-16 09:56] LABS: Alanine Aminotransferase 21 units/L (7-56); Albumin 4.2 g/dL (3.9-5); BUN/Creatinine Ratio 26; Blood Urea Nitrogen 44 mg/dL (7-17); Calcium 9.8 mg/dL (8.4-10.2); Hemolysis Index 0
[2021-12-16] MEDS ORDERED: SODIUM POLYSTYRENE 15 GM/60 ML ORAL LIQD PO ONE (10:40)
[2021-12-16] MEDS ORDERED: INSULIN REGULAR, HUMAN 100 UNITS/1 ML IV ONE (10:41)
[2021-12-16] MEDS ORDERED: SODIUM CHLORIDE 0.9% 500 ML 500 ML IV ONE (10:42)
[2021-12-16 15:12] LABS: Calcium 9.5 mg/dL (8.4-10.2)
[2021-12-16 15:58] VITALS: BP 123/94
== END 2021-12-16 16:20 | disposition home or self-care (01) ==
LOC: ED 00:01
DX: E11.65 Type 2 diabetes mellitus with hyperglycemia (principal); I10 Essential (primary) hypertension; E11.9 Type 2 diabetes mellitus without complications
CPT/HCPCS: 36415; 71045; 80048; 80053; 82962; 84484; 85025; 93005; 96361; 96374; 99284; J7040; Q9967; J1815